=== PATIENT | male | born 1935 | race Caucasian/White ===

== ENCOUNTER 2017-05-29 21:49 | Emergency (ER) | payer MEDICARE, BC ==
[2017-05-29] MEDS ORDERED: Sodium Chloride 0.9% 10 ML Syringe FLUSH PRN (22:17)
--- NOTE | 2017-05-29 22:17 | EDM.PDOC ---
ED HPI GENERAL MEDICAL PROBLEM - General Chief Complaint: Fever Stated Complaint: aches, fever Time Seen by Provider: 05/29/17 22:10 Source of Information: Reports: Patient, Family (), Old Records ([facility] chart/EMR) - History of Present Illness INITIAL COMMENTS - FREE TEXT/NARRATIVE: Patient was brought to the emergency room via private automobile by his for evaluation of progressive nonspecific fatigue and generalized arthralgias during the last 3 days. He did have a fever of 99.9 at 21:00 hours this evening with 200 mg of ibuprofen taken at that time. He denies any known exposure to infection including strep, mono, etc. He has also had some problems with insomnia over the last few days. The patient did receive his influenza booster about 3 weeks ago. The patient denies any chest pain/pressure, heart flutter, dizziness, orthostasis, orthopnea, diaphoresis, paresthesias, recent decreased exercise tolerance, or any other anginal-type symptoms. No recent history of abdominal pain, heartburn, nausea, diarrhea, melena, gross hematochezia, or any food intolerance, including fatty foods, etc. with normal bowel movement yesterday. He denies any cough, wheezing, dyspnea, etc. No history of recent headaches, visual changes, diplopia, change in mental status, or other change in neurological status. He rates his arthralgias at 7/10 previously, although improved to 2/10 on arrival Onset: Gradual Onset Date: 05/27/17 Duration: Getting Worse Quality: Reports: Ache Severity: Moderate Improves with: Reports: None Worsens with: Reports: None Context: Reports: Other (As above). Denies: Sick Contact Associated Symptoms: Denies: Confusion, Chest Pain, Cough, Diaphoresis, Fever/ Chills, Headaches, Loss of Appetite, Malaise, Nausea/Vomiting, Seizure, Shortness of Breath, Syncope, Weakness Treatments [employer]: Reports: NSAIDS Generalized Pain Score (Numeric/FACES): 2 - Related Data Allergies Allergy/AdvReac Type Severity Reaction Status Date / Time Penicillins Allergy Swelling Verified 05/29/17 21:51 Home Meds: Home Meds Aspirin [Halfprin] 81 mg PO DAILY 05/29/17 [History] Azithromycin [Zithromax] 500 mg PO DAILY #14 tablet 05/29/17 [Rx] Benazepril HCl [Lotensin] 20 mg PO DAILY 05/29/17 [History] Cholecalciferol (Vitamin D3) [Vitamin D3] 2,000 mg PO DAILY 05/29/17 [History] Levothyroxine [Synthroid] 50 mcg PO ACBREAKFAST #60 tablet 05/29/17 [Rx] Loteprednol Etabonate [Alrex] 1 drop EYEBOTH DAILY 05/29/17 [History] Verapamil [Calan SR] 240 mg PO BEDTIME 05/29/17 [History] amLODIPine [Norvasc] 5 mg PO DAILY 05/29/17 [History] atorvaSTATin [Lipitor] 5 mg PO WEEKLY 05/29/17 [History] levETIRAcetam [Keppra] 1,000 mg PO BEDTIME 05/29/17 [History] levETIRAcetam [Levetiracetam] 750 mg PO QAM 05/29/17 [History] Past Medical History HEENT History: Reports: Hard of Hearing, Impaired Vision, Other (See Below). Denies: Allergic Rhinitis, Cataract, Glaucoma, Macular Degeneration, Retinal Detachment Other HEENT History: Bilateral moderate presbycusis but no current therapy; patient wears bifocals/ reading glasses; nasal septum deviation secondary to previous fracture as a child Cardiovascular History: Reports: Aneurysm, Arrhythmia, Cardiomyopathy, High Cholesterol, Hypertension, PVD, Other (See Below). 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 Denies: Celiac Disease, Cholelithiasis, Chronic Constipation, Chronic Diarrhea, Colon Polyp, Gastritis, Hepatitis, Inflammatory Bowel Disease, Irritable Bowel Syndrome, Jaundice, Pancreatitis Other Gastrointestinal History: History of diverticulitis; history of H. pylori on 11/24/02 without previous treatment Genitourinary History: Reports: BPH, Retention, Urinary, Other (See Below). Denies: Chronic Renal Insuffiency, Renal Calculus, STD, Urinary Incontinence Other Genitourinary History: Testicular atrophy; Peyronie's disease; history of urinary retention secondary to BPH; proteinuria Musculoskeletal History: Reports: Back Pain, Chronic, Fracture, Neck Pain, Chronic, Osteoarthritis, Osteoporosis, Other (See Below). 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 Denies: Abuse, Victim of, ADD, ADHD, Addiction, Anxiety, Depression, Psych Hospitalization(s), PTSD, Suicide Attempt , Suicidal Ideation Endocrine/Metabolic History: Reports: Diabetes, Type II, Osteoporosis, Other ( See Below). Denies: Hypothyroidism Other Endocrine/Metabolic History: AODMdiet controlled; testosterone deficiency Hematologic History: Reports: None. Denies: Anemia, Blood Transfusion(s) Immunologic History: Reports: None. Denies: AIDS, HIV, SLE Oncologic (Cancer) History: Reports: None. Denies: Colon, Hodgkin's Lymphoma, Leukemia, Lymphoma, Malignant Melanoma, Non-Hodgkin's Lymphoma, Prostate, Squamous Cell Carcinoma Dermatologic History: Reports: Other (See Below). Denies: Eczema, Psoriasis Other Dermatologic History: Actinic keratosis - Infectious Disease History Infectious Disease History: Reports: Chicken Pox, Helicobacter Pylori, Mumps ( At age 8). Denies: C-Difficile, Measles, Meningitis, Mononucleosis, MRSA, Pertussis (Whooping Cough), Rheumatic Fever, Rubella, Scarlet Fever, Shingles, VRE - Past Surgical History Head Surgeries/Procedures: Reports: Craniotomy Other Head Surgeries/Procedures: Bilateral craniotomy with left frontal dural AV fistula excision on 12/22/02 HEENT Surgical History: Reports: Adenoidectomy, Oral Surgery, Tonsillectomy, Other (See Below). Denies: Cataract Surgery, Detached Retina, Eye Surgery, Myringotomy w Tube(s), Naso-Sinus Surgery Other HEENT Surgeries/Procedures: Multiple teeth extractions with partial uppers ; Tonsillectomy and adenoidectomy as a child Cardiovascular Surgical History: Reports: Aneurysm, Vascular Surgery, Other ( See Below). Denies: Varicose Other Cardiovascular Surgeries/Procedures: AVM fistula repair as below Respiratory Surgical History: Reports: None. Denies: Lung Biopsies, Thoracentesis GI Surgical History: Reports: Colonoscopy (Last colonoscopy in about 2002). Denies: Appendectomy, Cholecystectomy, EGD, Hernia, Abdominal, Hernia, Inguinal , Hernia Repair/Other, Polypectomy Male Surgical History: Denies: Circumcision, TURP-Transurethral Resection of Prostate, Vasectomy Endocrine Surgical History: Reports: None. Denies: Thyroid Biopsy Neurological Surgical History: Denies: C-Spine, Discectomy, Laminectomy, Lumbar Spine, Scoliosis, Spinal Fusion, Vertebroplasty Musculoskeletal Surgical History: Reports: None. Denies: Arthroscopic Procedure , Carpal Tunnel, Ganglion Cyst, ORIF, Shoulder Surgery Oncologic Surgical History: Reports: None Dermatological Surgical History: Reports: None - Past Imaging History Past Imaging History: Reports: Carotid US (02/09/07), Stress Testing (Cardiolite stress test on 01/28/07 with ejection fraction of 59%), Ultrasound (Abdominal aortic ultrasound on 02/09/07) Social & Family History - Family History Cardiac: Reports: Arrhythmia, CAD, Heart Murmur, CT, Pacemaker, Syncope, Other ( See Below) Other Cardiac Family History: Father with fatal CT at age 54; sister with heart valve surgery at an early age; hypertension in mother; son with syncopal episode secondary to bradycardia with pacemaker required : Reports: Renal Disease/Insufficiency, Other (See Below) Other Family History: Sister with renal failure secondary to SLE Musculoskeletal: Reports: RA, SLE, Other (See Below) Other Musculoskeletal Family History: Sister with rheumatoid arthritis and SLE in her 30s; maternal aunt and 2 cousins with SLE Neurological: Reports: Alzheimers Disease, Dementia, Other (See Below) Other Neurological Family History: Brother with organic brain syndrome; mother with fatal organic brain syndrome at age 96; teenage daughter with seizures; son with seizures Endocrine/Metabolic: Reports: Hypothyroidism, Other (See Below) Other Endocrine/Metabolic Family History: Mother and sister with hypothyroidism - Tobacco Use Tobacco Use Within Last Twelve Months: No Used Tobacco, but Quit: No Smoking Cessation Information Provided To Patient: No Second Hand Smoke Exposure: No Second Hand Smoke Education Provided: No - Caffeine Use Caffeine Use: Reports: None. Denies: Coffee, Energy Drinks, Soda, Tea - Alcohol Use Alcohol Use History: No Days Per Week of Alcohol Use: 0 (No previous DWIs, problems with alcohol abuse, etc.) Alcohol Use in Last Twelve Months: No - Recreational Drug Use Recreational Drug Use: No Drug Use in Last 12 Months: No Recreational Drug Type: Denies: Amphetamines (Speed), Cocaine, Heroin, LSD (Acid ), Marijuana/Hashish, Methamphetamine - Living Situation & Occupation Living situation: Reports: (1960, 3 children;) Occupation: Retired ([employer]) ED ROS GENERAL - Review of Systems Review Of Systems: See Below Constitutional: Reports: Fever, Chills, Fatigue, Night Sweats. Denies: Malaise , Weakness, Diaphoresis, Decreased Appetite, Weight Loss, Weight Gain HEENT: Reports: Glasses, Hearing Loss (Stable chronic). Denies: Dental Pain, Ear Discharge, Ear Pain, Eye Discharge, Eye Pain, Rhinitis, Sinus Problem, Throat Pain, Throat Swelling, Vertigo, Vision Change Respiratory: Reports: No Symptoms. Denies: Shortness of Breath, Wheezing, Pleuritic Chest Pain, Cough, Sputum, Hemoptysis Cardiovascular: Reports: No Symptoms. Denies: Chest Pain, Blood Pressure Problem, Claudication, Dyspnea on Exertion, Edema, Lightheadedness, Orthopnea, Palpitations, PND, Syncope Endocrine: Reports: Fatigue. Denies: Polyuria GI/Abdominal: Reports: No Symptoms. Denies: Abdominal Pain, Anorexia, Black Stool, Bloody Stool, Constipation, Diarrhea, Decreased Appetite, Difficulty Swallowing, Distension, Flatus, Hematemesis, Hematochezia, Melena, Mucous in Stool, Nausea, Stool Incontinence, Vomiting : Reports: No Symptoms. Denies: Discharge, Dysuria, Flank Pain, Frequency, Hematuria, Incontinence, Pain, Urgency, Urinary Retention Musculoskeletal: Reports: Joint Pain (General arthralgias), Muscle Pain ( General myalgias). Denies: Neck Pain, Shoulder Pain, Arm Pain, Back Pain, Hand Pain, Leg Pain, Joint Swelling, Muscle Stiffness Skin: Reports: No Symptoms. Denies: Diaphoresis, Bruising, Wound Neurological: Reports: No Symptoms. Denies: Confusion, Dizziness, Headache, Numbness, Paresthesia, Seizure, Syncope, Weakness Psychiatric: Reports: No Symptoms. Denies: Agitation, Anxiety, Confusion, Depression Hematologic/Lymphatic: Reports: No Symptoms Immunologic: Reports: No Symptoms ED EXAM, GENERAL - Physical Exam Exam: See Below Exam Limited By: No Limitations General Appearance: Alert, WD/WN, No Apparent Distress Eye Exam: Bilateral Eye: EOMI, Normal Inspection (No nystagmus), PERRL Ears: Normal External Exam, Normal Canal, Normal TMs, Hearing Loss (Moderate to severe bilateral presbycusis) Nose: Normal Mucosa, No Blood, Nasal Deformity (Nasal septum deviation to the left secondary to deformity), Clear Rhinorrhea (Mild bilateral) Throat/Mouth: Normal Inspection, Normal Lips, Normal Teeth (Partial upper dentures), Normal Gums, Normal Oropharynx (Trace erythema in the posterior pharynx with no pinpoint white exudates or peritonsillar abscess), Normal Voice , No Airway Compromise. No: Dysphagia, Inflammation, Perioral Cyanosis Head: Atraumatic, Normocephalic. No: Facial Swelling, Facial Tenderness, Sinus Tenderness Neck: Supple, Non-Tender, Full Range of Motion, Carotid Bruit (Mild bilateral carotid bruits). No: Limited Range of Motion, Lymphadenopathy (L), Lymphadenopathy (R), Thyromegaly Respiratory/Chest: No Respiratory Distress, Lungs Clear, Normal Breath Sounds, No Accessory Muscle Use, Chest Non-Tender. No: Pleural Rub, Retractions Cardiovascular: Normal Peripheral Pulses, Regular Rate, Rhythm, No Edema, No Gallop, No JVD, No Murmur, No Rub. No: Gallop/S3, Gallop/S4, Friction Rub Peripheral Pulses: 2+: Radial (L), Radial (R) GI/Abdominal: Normal Bowel Sounds, Soft, Non-Tender, No Organomegaly, No Distention, No Abnormal Bruit, No Mass. No: Guarding (Male) Exam: Deferred Rectal (Males) Exam: Deferred Back Exam: Normal Inspection, Full Range of Motion. No: CVA Tenderness (L), CVA Tenderness (R), Muscle Spasm Extremities: Normal Inspection, Normal Range of Motion, Non-Tender, No Pedal Edema, Normal Capillary Refill. No: Simón's Sign Neurological: Alert, Oriented, CN II-XII Intact, Normal Cognition, Normal Gait, No Motor/Sensory Deficits Psychiatric: Normal Affect, Normal Mood Skin Exam: Warm, Dry, Intact, Normal Color, No Rash. No: Diaphoretic, Wound/ Incision Lymphatic: No Adenopathy Course - Vital Signs Last Recorded V/S: Last Vital Signs Temp 37.4 C 05/29/17 21:55 Pulse 71 05/29/17 21:55 Resp 18 05/29/17 21:55 BP 146/73 H 05/29/17 22:38 Pulse Ox 97 05/29/17 21:55 Vital Signs - 24 hr 05/29/17 05/29/17 05/29/17 21:55 22:11 22:19 Temperature [ 37.4 C Temporal] Pulse, 71 Peripheral [ Pulse Oximetry] Respiratory 18 Rate Blood Pressure 166/83 H 155/74 H 156/74 H [Left Upper Arm ] O2 Sat by Pulse 97 Oximetry 05/29/17 22:38 Temperature [ Temporal] Pulse, Peripheral [ Pulse Oximetry] Respiratory Rate Blood Pressure 146/73 H [Left Upper Arm ] O2 Sat by Pulse Oximetry - Orders/Labs/Meds Orders: Active Orders 24 hr Category Date Time Status Communication Order [RC] ROUTINE Care 05/29/17 22:17 Active Peripheral IV Care [RC] . DIRECTED Care 05/29/17 22:18 Active Up With Assistance [RC] ASDIRECTED Care 05/29/17 22:17 Active Nothing Per Oral Diet [DIET] Diet 05/29/17 Breakfast Active Chest 2V [CR] Stat Exams 05/29/17 22:17 Taken CULTURE BLOOD [BC] Stat Lab 05/29/17 22:35 Received CULTURE BLOOD [BC] Stat Lab 05/29/17 22:53 Received CULTURE SPUTUM + SMEAR [RM] Urgent Lab 05/29/17 22:17 Uncollected CULTURE URINE [RM] Routine Lab 05/29/17 22:55 Received Sodium Chloride 0.9% [Saline Flush] Med 05/29/17 22:17 Active 10 ml FLUSH ASDIRECTED PRN Blood Culture x2 Reflex Set [OM.PC] Stat Oth 05/29/17 22:17 Ordered Obtain Past Medical Record [OM.PC] Stat [facility] 05/29/17 22:17 Active Peripheral IV Insertion Adult [OM.PC] Stat [facility] 05/29/17 22:17 Ordered Resuscitation Status Routine Resus Stat 05/29/17 22:17 Ordered Medication Orders Sodium Chloride (Saline Flush) 10 ml FLUSH ASDIRECTED PRN PRN Reason: Keep Vein Open Last Admin: 05/29/17 22:38 Dose: 10 ml Labs: Laboratory Tests 05/29/17 05/29/17 05/29/17 Range/Units 22:35 22:35 22:35 WBC 7.1 (4.0-10.2) K/uL RBC 5.48 H (4.33-5.41) M/uL Hgb 16.3 (13.1-16.8) g/dL Hct 47.9 (39.0-49.0) % MCV 87.4 (84.0-98.0) fL MCH 29.7 (28.2-33.3) pg MCHC 34.0 (31.7-36.0) g/dL RDW 13.3 (11.2-14.1) % Plt Count 212 (150-350) K/uL Neut % (Auto) 63.6 (45.0-80.0) % Lymph % (Auto) 22.8 (10.0-50.0) % [place] % (Auto) 10.8 (2.0-14.0) % Eos % (Auto) 2.1 (0.0-5.0) % Baso % (Auto) 0.7 (0.0-2.0) % Neut # (Auto) 4.49 (1.40-7.00) K/uL Lymph # (Auto) 1.61 (0.50-3.50) K/uL [place] # (Auto) 0.76 (0.00-1.00) K/uL Eos # (Auto) 0.15 (0.00-0.50) K/uL Baso # (Auto) 0.05 (0.00-0.20) K/uL Sodium 140 (136-145) mmol/L Potassium 3.9 (3.5-5.1) mmol/L Chloride 101 (98-107) mmol/L Carbon Dioxide 26.0 (21.0-32.0) mmol/L BUN 13 (7-18) mg/dL Creatinine 0.88 (0.51-1.17) mg/dL Est Cr Clr Drug Dosing 72.26 mL/min Estimated GFR (MDRD) > 60 mL/min Glucose 123 H (74-106) mg/dL Lactic Acid 1.5 (0.4-2.0) mmol/L Calcium 9.1 (8.5-10.1) mg/dL Magnesium 2.2 (1.8-2.4) mg/dL Total Bilirubin 0.5 (0.2-1.0) mg/dL AST 22 (15-37) U/L ALT 41 (12-78) U/L Alkaline Phosphatase 71 (46-116) IU/L Total Protein 7.7 (6.4-8.2) g/dL Albumin 4.3 (3.4-5.0) g/dL TSH, Ultra Sensitive 4.773 H (0.358-3.740) mIU/mL Specimen Type Urine Color Urine Appearance Urine pH (5.0-9.0) Ur Specific [place] (1.005-1.030) Urine Protein (NEGATIVE) mg/dL Urine Glucose (UA) (NEGATIVE) mg/dL Urine Ketones (NEGATIVE) mg/dL Urine Occult Blood (NEGATIVE) Urine Nitrite (NEGATIVE) Urine Bilirubin (NEGATIVE) Urine Urobilinogen (0.2-1.0) E.U./dL Ur Leukocyte Esterase (NEGATIVE) Urine RBC /HPF Urine WBC /HPF Ur Epithelial Cells /LPF Urine Bacteria (NONE TO FEW) /HPF Urine Mucus (NEGATIVE) /LPF 05/29/17 Range/Units 22:55 WBC (4.0-10.2) K/uL RBC (4.33-5.41) M/uL Hgb (13.1-16.8) g/dL Hct (39.0-49.0) % MCV (84.0-98.0) fL MCH (28.2-33.3) pg MCHC (31.7-36.0) g/dL RDW (11.2-14.1) % Plt Count (150-350) K/uL Neut % (Auto) (45.0-80.0) % Lymph % (Auto) (10.0-50.0) % [place] % (Auto) (2.0-14.0) % Eos % (Auto) (0.0-5.0) % Baso % (Auto) (0.0-2.0) % Neut # (Auto) (1.40-7.00) K/uL Lymph # (Auto) (0.50-3.50) K/uL [place] # (Auto) (0.00-1.00) K/uL Eos # (Auto) (0.00-0.50) K/uL Baso # (Auto) (0.00-0.20) K/uL Sodium (136-145) mmol/L Potassium (3.5-5.1) mmol/L Chloride (98-107) mmol/L Carbon Dioxide (21.0-32.0) mmol/L BUN (7-18) mg/dL Creatinine (0.51-1.17) mg/dL Est Cr Clr Drug Dosing mL/min Estimated GFR (MDRD) mL/min Glucose (74-106) mg/dL Lactic Acid (0.4-2.0) mmol/L Calcium (8.5-10.1) mg/dL Magnesium (1.8-2.4) mg/dL Total Bilirubin (0.2-1.0) mg/dL AST (15-37) U/L ALT (12-78) U/L Alkaline Phosphatase (46-116) IU/L Total Protein (6.4-8.2) g/dL Albumin (3.4-5.0) g/dL TSH, Ultra Sensitive (0.358-3.740) mIU/mL Specimen Type Urincc Urine Color Yellow Urine Appearance Clear Urine pH 7.0 (5.0-9.0) Ur Specific [place] 1.020 (1.005-1.030) Urine Protein Negative (NEGATIVE) mg/dL Urine Glucose (UA) 100 H (NEGATIVE) mg/dL Urine Ketones Negative (NEGATIVE) mg/dL Urine Occult Blood Negative (NEGATIVE) Urine Nitrite Negative (NEGATIVE) Urine Bilirubin Negative (NEGATIVE) Urine Urobilinogen 1.0 (0.2-1.0) E.U./dL Ur Leukocyte Esterase Negative (NEGATIVE) Urine RBC 0-5 /HPF Urine WBC 0-5 /HPF Ur Epithelial Cells Few /LPF Urine Bacteria Few (NONE TO FEW) /HPF Urine Mucus Few H (NEGATIVE) /LPF Urine set up for culture and sensitivity Blood Cultures 2 collected Microbiology 05/29/17 22:19 Group A Streptococcus Rapid Screen - Final Throat Positive Strep A Screen 05/29/17 22:17 Influenza Type A Antigen Screen - Final Nasal, Left NEGATIVE INFLUENZA A VIRUS AG Influenza Type B Antigen Screen - Final NEGATIVE INFLUENZA B VIRUS AG Meds: Medications Generic Name Dose Route Start Last Admin Trade Name Freq PRN Reason Stop Dose Admin Sodium Chloride 10 ml 05/29/17 22:17 05/29/17 22:38 Saline Flush FLUSH 10 ml ASDIRECTED PRN Administration Keep Vein Open Discontinued Medications Generic Name Dose Route Start Last Admin Trade Name Freq PRN Reason Stop Dose Admin Azithromycin 500 mg 05/29/17 23:21 05/29/17 23:24 Zithromax PO 05/29/17 23:22 500 mg ONETIME ONE Administration Famotidine 40 mg 05/29/17 22:21 05/29/17 22:39 Pepcid IVPUSH 05/29/17 22:22 40 mg ONETIME ONE Administration Ketorolac Tromethamine 30 mg 05/29/17 22:21 05/29/17 22:38 Toradol IVPUSH 05/29/17 22:22 30 mg ONETIME ONE Administration - Radiology Interpretation Free Text/Narrative:: Chest x-ray, PA and lateral, shows evidence of moderate to severe COPD and pulmonary fibrotic changes with no cardiomegaly, CHF, pulmonary infiltrates, pneumothorax, etc. Moderate osteophytic and osteoporotic changes in the thoracic spine. Departure - Departure Time of Disposition: 23:40 Disposition: Home, Self-Care 01 Condition: Good Clinical Impression: Tonsillitis, Dyslipidemia, Grand mal seizure, Hypothyroidism (acquired) COPD (chronic obstructive pulmonary disease) Qualifiers: COPD type: emphysema Emphysema type: panlobular Qualified Code(s): J43.1 - Panlobular emphysema Hypertension Qualifiers: Hypertension type: essential hypertension Qualified Code(s): I10 - Essential ( primary) hypertension Osteoarthritis Qualifiers: Osteoarthritis location: multiple joints Osteoarthritis type: primary Qualified Code(s): M15.0 - Primary generalized (osteo)arthritis Diabetes mellitus Qualifiers: Diabetes mellitus type: type 2 Diabetes mellitus complication status: without complication Diabetes mellitus retirement insulin use: without retirement use Qualified Code(s): E11.9 - Type 2 diabetes mellitus without complications - Discharge Information Prescriptions: Azithromycin [Zithromax] 500 mg PO DAILY #14 tablet Levothyroxine [Synthroid] 50 mcg PO ACBREAKFAST #60 tablet Instructions: Hypothyroidism, Strep Throat, [id number] Referrals: Maribel Fraser LAB TECHNICIAN [Primary Care Provider] - Forms: ED Department Discharge Additional Instructions: 1. Follow up with your regular provider in 10-14 days as needed, if symptoms persist. 2. Tylenol 650 mg by mouth every 4 hours and/or OTC ibuprofen 2-3 tabs by mouth every 6 hours with food as directed./needed. Next dose of ibuprofen as needed in 6 hours secondary to medications given in the emergency room 3. Listerine gargles four times per day, after meals and at bedtime, with additional Chloroseptic lozenges or spray as needed for 10 days and/or until symptoms resolve. 4. Hygiene issues as discussed 5. TSH should be repeated in 4 weeks with your regular provider secondary to new diagnosis of hypothyroidism - Problem List & Annotations (1) Tonsillitis SNOMED Code(s): 57777419 Code(s): J03.90 - ACUTE TONSILLITIS, UNSPECIFIED Status: Acute Priority: High Current Visit: Yes Onset Date: 05/29/17 Annotation/Comment:: Initial dose of Zithromax given in the emergency room. Hygiene issues, etc. discussed (2) Hypothyroidism (acquired) SNOMED Code(s): 106560949 Code(s): E03.9 - HYPOTHYROIDISM, UNSPECIFIED Status: Acute Priority: Medium Current Visit: Yes Onset Date: 05/29/17 Annotation/Comment:: Note recent fatigue. Newly diagnosed hypothyroidism with initiation of medical therapy as per discharge instructions and repeat TSH in about 4 weeks by his regular provider (3) COPD (chronic obstructive pulmonary disease) SNOMED Code(s): 85030235 Code(s): J44.9 - CHRONIC OBSTRUCTIVE PULMONARY DISEASE, UNSPECIFIED Status : Chronic Priority: Medium Current Visit: Yes Annotation/Comment:: Additional pulmonary fibrosis with no recent bronchitic type symptoms. No medical therapy for his COPD required to this point Qualifiers: COPD type: emphysema Emphysema type: panlobular Qualified Code(s): J43.1 - Panlobular emphysema (4) Diabetes mellitus SNOMED Code(s): 74556963 Code(s): E11.9 - TYPE 2 DIABETES MELLITUS WITHOUT COMPLICATIONS Status: Chronic Priority: Medium Current Visit: Yes Annotation/Comment:: Diet- controlled Qualifiers: Diabetes mellitus type: type 2 Diabetes mellitus complication status: without complication Diabetes mellitus retirement insulin use: without ad terminal makeup operator use Qualified Code(s): E11.9 - Type 2 diabetes mellitus without complications (5) Dyslipidemia SNOMED Code(s): 729037201 Code(s): E78.5 - HYPERLIPIDEMIA, UNSPECIFIED Status: Chronic Priority: Medium Current Visit: Yes Annotation/Comment:: Currently under therapy (6) Grand mal seizure SNOMED Code(s): 68512681 Code(s): G40.409 - OTH GENERALIZED EPILEPSY, NOT INTRACTABLE, W/O STAT EPI Status: Chronic Priority: Medium Current Visit: Yes Annotation/Comment:: Patient has not had a seizure over 10 years. Note previous history of AVM as above. He apparently recently had a Keppra level collected with no recent change in medical therapy (7) Hypertension SNOMED Code(s): 81173469 Code(s): I10 - ESSENTIAL (PRIMARY) HYPERTENSION Status: Chronic Priority : Medium Current Visit: Yes Annotation/Comment:: Stable by history and in the emergency room Qualifiers: Hypertension type: essential hypertension Qualified Code(s): I10 - Essential (primary) hypertension (8) Osteoarthritis SNOMED Code(s): 959902904 Code(s): M19.90 - UNSPECIFIED OSTEOARTHRITIS, UNSPECIFIED SITE Status: Chronic Priority: Medium Current Visit: Yes Annotation/Comment:: Other than recent generalized arthralgias from his current infection his arthritis has been stable Qualifiers: Osteoarthritis location: multiple joints Osteoarthritis type: primary Qualified Code(s): M15.0 - Primary generalized (osteo)arthritis - Problem List Review Problem List Initiated/Reviewed/Updated: Yes - My Orders Last 24 Hours: My Active Orders 05/29/17 22:17 Communication Order [RC] ROUTINE Up With Assistance [RC] ASDIRECTED Chest 2V [CR] Stat CULTURE SPUTUM + SMEAR [RM] Urgent Sodium Chloride 0.9% [Saline Flush] 10 ml FLUSH ASDIRECTED PRN Blood Culture x2 Reflex Set [OM.PC] Stat Obtain Past Medical Record [OM.PC] Stat Peripheral IV Insertion Adult [OM.PC] Stat Resuscitation Status Routine 05/29/17 22:18 Peripheral IV Care [RC] . DIRECTED 05/29/17 22:35 CULTURE BLOOD [BC] Stat 05/29/17 22:53 CULTURE BLOOD [BC] Stat 05/29/17 22:55 CULTURE URINE [RM] Routine 05/29/17 Breakfast Nothing Per Oral Diet [DIET] - Assessment/Plan Last 24 Hours: My Active Orders 05/29/17 22:17 Communication Order [RC] ROUTINE Up With Assistance [RC] ASDIRECTED Chest 2V [CR] Stat CULTURE SPUTUM + SMEAR [RM] Urgent Sodium Chloride 0.9% [Saline Flush] 10 ml FLUSH ASDIRECTED PRN Blood Culture x2 Reflex Set [OM.PC] Stat Obtain Past Medical Record [OM.PC] Stat Peripheral IV Insertion Adult [OM.PC] Stat Resuscitation Status Routine 05/29/17 22:18 Peripheral IV Care [RC] . DIRECTED 05/29/17 22:35 CULTURE BLOOD [BC] Stat 05/29/17 22:53 CULTURE BLOOD [BC] Stat 05/29/17 22:55 CULTURE URINE [RM] Routine 05/29/17 Breakfast Nothing Per Oral Diet [DIET] Assessment:: As above Plan: As above. Extensive precautions were given to the patient and his , who are in agreement with the treatment plan. Extensive precautions were given to the patient, who is in agreement with the treatment plan.
[2017-05-29] MEDS ORDERED: Famotidine 20 MG/2 ML SDV IVPUSH ONE (22:21)
[2017-05-29] MEDS ORDERED: Ketorolac 30 MG/ML SDV IVPUSH ONE (22:21)
[2017-05-29 23:02] LABS: CHLORIDE,CL 101 mmol/L (98-107); SODIUM,NA 140 mmol/L (136-145)
[2017-05-29] MEDS ORDERED: Azithromycin 250 MG Tab PO ONE (23:21)
== END 2017-05-29 23:40 | disposition home or self-care (01) ==
LOC: LL.ED 21:49
DX: J03.90 Acute tonsillitis, unspecified (principal); G40.409 Other generalized epilepsy and epileptic syndromes, not intractable, without status epilepticus; E78.5 Hyperlipidemia, unspecified; E03.9 Hypothyroidism, unspecified; J43.1 Panlobular emphysema; I11.9 Hypertensive heart disease without heart failure; M15.0 Primary generalized (osteo)arthritis; E11.9 Type 2 diabetes mellitus without complications; Z79.82 Long term (current) use of aspirin; Z79.2 Long term (current) use of antibiotics; Z79.899 Other long term (current) drug therapy; Z88.0 Allergy status to penicillin
CPT/HCPCS: 36415; 71020; 80053; 81001; 83605; 83735; 84443; 85025; 87040; 87086; 87430; 87804; 96374; 96375; 99284; A9270; J1885; J7050; S0028

== ENCOUNTER 2018-01-16 21:54 | Emergency (ER) | payer MEDICARE, BC ==
[2018-01-16] MEDS ORDERED: Ondansetron 4 MG/2 ML SDV IVPUSH ONE (22:07)
[2018-01-16] MEDS ORDERED: Sodium Chloride 0.9% 10 ML Syringe FLUSH PRN (22:08)
[2018-01-16] MEDS ORDERED: Iopamidol 612 MG/ML 100 ML Bottle IVPUSH ONE (22:15)
[2018-01-16] MEDS ORDERED: Sodium Chloride 0.9% 1,000 ML IV SCH (22:15)
--- NOTE | 2018-01-16 22:15 | EDM.PDOC ---
ED HPI GENERAL MEDICAL PROBLEM - General Chief Complaint: Abdominal Pain Stated Complaint: nausea, abd pain Time Seen by Provider: 01/16/18 22:00 Source of Information: Reports: Patient History Limitations: Reports: No Limitations - History of Present Illness INITIAL COMMENTS - FREE TEXT/NARRATIVE: Patient is a 82-year-old who is seen with chief complaint of abdominal discomfort and pain this is mostly left lower quadrant and hypogastric area patient also complained of nausea and had 1 emesis about 400 mL in the ER. Onset: Today, Sudden Duration: Hour(s):, Getting Worse Location: Reports: Abdomen Quality: Reports: Ache Severity: Moderate Worsens with: Reports: None Associated Symptoms: Reports: Diaphoresis, Nausea/Vomiting, Weakness Abdominal Pain Score (Numeric/FACES): 3 - Related Data Allergies Allergy/AdvReac Type Severity Reaction Status Date / Time Penicillins Allergy Swelling Verified 01/16/18 21:56 Home Meds: Home Meds Aspirin [Halfprin] 81 mg PO DAILY 05/29/17 [History] Azithromycin [Zithromax] 500 mg PO DAILY #14 tablet 05/29/17 [Rx] Benazepril HCl [Lotensin] 20 mg PO DAILY 05/29/17 [History] Cholecalciferol (Vitamin D3) [Vitamin D3] 2,000 mg PO DAILY 05/29/17 [History] Levothyroxine [Synthroid] 50 mcg PO ACBREAKFAST #60 tablet 05/29/17 [Rx] Loteprednol Etabonate [Alrex] 1 drop EYEBOTH DAILY 05/29/17 [History] Verapamil [Calan SR] 240 mg PO BEDTIME 05/29/17 [History] amLODIPine [Norvasc] 5 mg PO DAILY 05/29/17 [History] atorvaSTATin [Lipitor] 5 mg PO WEEKLY 05/29/17 [History] levETIRAcetam [Keppra] 1,000 mg PO BEDTIME 05/29/17 [History] levETIRAcetam [Levetiracetam] 750 mg PO QAM 05/29/17 [History] Past Medical History HEENT History: Reports: Hard of Hearing, Impaired Vision, Other (See Below) Other HEENT History: Bilateral moderate presbycusis but no current therapy; patient wears bifocals/ reading glasses; nasal septum deviation secondary to previous fracture as a child Cardiovascular History: Reports: Aneurysm, Arrhythmia, Cardiomyopathy, High Cholesterol, Hypertension, PVD, Other (See Below) Other Cardiovascular History: Dyslipidemia; PVCs, PACs, couplets, bigeminy, trigeminy, and 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; mild C-spine fracture as a child with multiple vertebral body compression fractures secondary to osteoporosis Neurological History: Reports: Cerebral Aneurysms, Seizure, Other (See Below) Other Neuro History: 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; 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 Psychiatric History: Reports: None Endocrine/Metabolic History: Reports: Diabetes, Type II, Osteoporosis, Other ( See Below) Other Endocrine/Metabolic History: AODMdiet controlled; testosterone deficiency Hematologic History: Reports: None Immunologic History: Reports: None Oncologic (Cancer) History: Reports: None Dermatologic History: Reports: Other (See Below) Other Dermatologic History: Actinic keratosis - Infectious Disease History Infectious Disease History: Reports: Chicken Pox, Helicobacter Pylori, Mumps - Past Surgical History Head Surgeries/Procedures: Reports: Craniotomy HEENT Surgical History: Reports: Adenoidectomy, Oral Surgery, Tonsillectomy, Other (See Below) Other HEENT Surgeries/Procedures: Multiple teeth extractions with partial uppers ; Tonsillectomy and adenoidectomy as a child Cardiovascular Surgical History: Reports: Aneurysm, Vascular Surgery, Other ( See Below) Other Cardiovascular Surgeries/Procedures: AVM fistula repair as below Respiratory Surgical History: Reports: None GI Surgical History: Reports: Colonoscopy Endocrine Surgical History: Reports: None Musculoskeletal Surgical History: Reports: None Oncologic Surgical History: Reports: None Dermatological Surgical History: Reports: None - Past Imaging History Past Imaging History: Reports: Carotid US (02/09/07), Stress Testing (Cardiolite stress test on 01/28/07 with ejection fraction of 59%), Ultrasound (Abdominal aortic ultrasound on 02/09/07) Social & Family History - Family History Cardiac: Reports: Arrhythmia, CAD, Heart Murmur, [place], Pacemaker, Syncope, Other ( See Below) Other Cardiac Family History: Father with fatal MN at age 54; sister with heart valve surgery at an early age; hypertension in mother; son with syncopal episode secondary to bradycardia with pacemaker required : Reports: Renal Disease/Insufficiency, Other (See Below) Other Family History: Sister with renal failure secondary to SLE Musculoskeletal: Reports: RA, SLE, Other (See Below) Other Musculoskeletal Family History: Sister with rheumatoid arthritis and SLE in her 30s; maternal aunt and 2 cousins with SLE Neurological: Reports: Alzheimers Disease, Dementia, Other (See Below) Other Neurological Family History: Brother with organic brain syndrome; mother with fatal organic brain syndrome at age 96; teenage daughter with seizures; son with seizures Endocrine/Metabolic: Reports: Hypothyroidism, Other (See Below) Other Endocrine/Metabolic Family History: Mother and sister with hypothyroidism - Caffeine Use Caffeine Use: Reports: None. Denies: Coffee, Energy Drinks, Soda, Tea - Living Situation & Occupation Living situation: Reports: (1960, 3 children;) Occupation: Retired ([employer]) ED ROS GENERAL - Review of Systems Review Of Systems: See Below Constitutional: Reports: Chills, Diaphoresis HEENT: Reports: No Symptoms Respiratory: Reports: No Symptoms Cardiovascular: Reports: No Symptoms Endocrine: Reports: No Symptoms GI/Abdominal: Reports: Abdominal Pain, Distension, Nausea, Vomiting : Reports: No Symptoms Musculoskeletal: Reports: No Symptoms Skin: Reports: No Symptoms Neurological: Reports: No Symptoms Psychiatric: Reports: No Symptoms Hematologic/Lymphatic: Reports: No Symptoms Immunologic: Reports: No Symptoms ED EXAM, GI/ABD - Physical Exam Exam: See Below Exam Limited By: No Limitations General Appearance: Alert, WD/WN Eyes: Bilateral: Normal Appearance, EOMI Ears: Normal External Exam, Normal Canal, Hearing Grossly Normal, Normal TMs Nose: Normal Inspection, Normal Mucosa, No Blood Throat/Mouth: Normal Inspection, Normal Lips, Normal Teeth, Normal Gums, Normal Oropharynx, Normal Voice, No Airway Compromise Head: Atraumatic, Normocephalic Neck: Normal Inspection, Supple, Non-Tender, Full Range of Motion Respiratory/Chest: No Respiratory Distress, Lungs Clear, Normal Breath Sounds, No Accessory Muscle Use, Chest Non-Tender Cardiovascular: Normal Peripheral Pulses, Regular Rate, Rhythm, No Edema, No Gallop, No JVD, No Murmur, No Rub GI/Abdominal Exam: Normal Bowel Sounds, Tender (Male) Exam: Deferred Rectal (Males) Exam: Deferred Back Exam: Normal Inspection, Full Range of Motion, NT Extremities: Normal Inspection, Normal Range of Motion, Non-Tender, Normal Capillary Refill, No Pedal Edema Neurological: Alert, Oriented, CN II-XII Intact, Normal Cognition, Normal Gait, Normal Reflexes, No Motor/Sensory Deficits Psychiatric: Normal Affect, Normal Mood Skin Exam: Warm, Dry, Intact, Normal Color, No Rash Lymphatic: No Adenopathy Course - Vital Signs Last Recorded V/S: Last Vital Signs Temp 98.2 F 01/16/18 22:00 Pulse 78 01/17/18 00:00 Resp 18 01/17/18 00:00 BP 152/71 H 01/17/18 00:00 Pulse Ox 98 01/17/18 00:00 - Orders/Labs/Meds Labs: Laboratory Tests 01/16/18 01/16/18 Range/Units 22:15 22:15 WBC 13.3 H (4.0-10.2) K/uL RBC 5.59 H (4.33-5.41) M/uL Hgb 16.4 (13.1-16.8) g/dL Hct 48.3 (39.0-49.0) % MCV 86.4 (84.0-98.0) fL MCH 29.3 (28.2-33.3) pg MCHC 34.0 (31.7-36.0) g/dL RDW 13.6 (11.2-14.1) % Plt Count 205 (150-350) K/uL Neut % (Auto) 73.4 (45.0-80.0) % Lymph % (Auto) 17.4 (10.0-50.0) % [place] % (Auto) 6.9 (2.0-14.0) % Eos % (Auto) 1.8 (0.0-5.0) % Baso % (Auto) 0.5 (0.0-2.0) % Neut # (Auto) 9.77 H (1.40-7.00) K/uL Lymph # (Auto) 2.32 (0.50-3.50) K/uL [place] # (Auto) 0.92 (0.00-1.00) K/uL Eos # (Auto) 0.24 (0.00-0.50) K/uL Baso # (Auto) 0.06 (0.00-0.20) K/uL Sodium 142 (136-145) mmol/L Potassium 3.6 (3.5-5.1) mmol/L Chloride 105 (98-107) mmol/L Carbon Dioxide 26.4 (21.0-32.0) mmol/L BUN 18 (7-18) mg/dL Creatinine 1.01 (0.51-1.17) mg/dL Est Cr Clr Drug Dosing 61.89 mL/min Estimated GFR (MDRD) > 60 mL/min Glucose 122 H (74-106) mg/dL Calcium 9.4 (8.5-10.1) mg/dL Troponin I 0.000 (0.000-0.056) ng/mL Meds: Medications Discontinued Medications Generic Name Dose Route Start Last Admin Trade Name Akshatq PRN Reason Stop Dose Admin Sodium Chloride 1,000 mls @ 150 mls/hr 01/16/18 22:15 01/16/18 22:40 Normal Saline IV 150 mls/hr ASDIRECTED THEO Administration Iopamidol 100 ml 01/16/18 22:15 01/17/18 00:06 Isovue-300 (61%) IVPUSH 01/16/18 22:16 100 ml ONETIME ONE Administration Ondansetron HCl 4 mg 01/16/18 22:07 01/16/18 22:40 Zofran IVPUSH 01/16/18 22:08 4 mg ONETIME ONE Administration Sodium Chloride 10 ml 01/16/18 22:08 Saline Flush FLUSH ASDIRECTED PRN Keep Vein Open Departure - Departure Time of Disposition: 00:49 Disposition: Home, Self-Care 01 Clinical Impression: Gastroenteritis - Discharge Information *PRESCRIPTION DRUG MONITORING PROGRAM REVIEWED*: Not Applicable *COPY OF PRESCRIPTION DRUG MONITORING REPORT IN PATIENT NATALIE: Not Applicable Instructions: Renal Scan Referrals: Maribel Fraser NP [Primary Care Provider] - Forms: ED Department Discharge Care Plan Goals: CT of the abdomen revealed enlarged left kidney and renal pelvis as far as the GI tract and looked like there was some diverticuli but not diverticulitis also there was watery stool in the colon which most probably is secondary to gastroenteritis . We will schedule him for a ultrasound of the kidneys Thursday and patient should follow-up Thursday with private M.D. we'll start him on Cipro twice a day
[2018-01-16 22:38] LABS: CHLORIDE,CL 105 mmol/L (98-107); SODIUM,NA 142 mmol/L (136-145)
== END 2018-01-17 01:05 | disposition home or self-care (01) ==
LOC: LL.ED 21:54
DX: K52.9 Noninfective gastroenteritis and colitis, unspecified (principal); I10 Essential (primary) hypertension; J44.9 Chronic obstructive pulmonary disease, unspecified; E11.9 Type 2 diabetes mellitus without complications; Z88.0 Allergy status to penicillin; Z79.82 Long term (current) use of aspirin; Z79.899 Other long term (current) drug therapy
CPT/HCPCS: 36415; 74177; 80048; 84484; 85025; 96361; 96374; 99284; J2405; J7030; Q9967

== ENCOUNTER 2020-07-31 07:48 | Emergency (ER) | payer MEDICARE, BC ==
--- NOTE | 2020-07-31 08:44 | EDM.PDOC ---
ED HPI GENERAL MEDICAL PROBLEM - General Chief Complaint: ENT Problem Stated Complaint: hearing loss Time Seen by Provider: 07/31/20 08:00 Source of Information: Reports: Patient, Family - History of Present Illness INITIAL COMMENTS - FREE TEXT/NARRATIVE: Pt presents to ER with acute hearing loss at 2100 hrs last evening No pain No GRANT No trauma Pt has hx/o same symptoms 15 yrs ago and was diagnosed with AVM at that time Hearing loss is in both ears Also states his thoughts feel fuzzy Onset: Sudden Duration: Day(s): Location: Reports: Head - Related Data Allergies Allergy/AdvReac Type Severity Reaction Status Date / Time Penicillins Allergy Swelling Verified 07/31/20 08:08 Home Meds: Home Meds Aspirin [Halfprin] 81 mg PO DAILY 05/29/17 [History] Benazepril HCl [Lotensin] 20 mg PO DAILY 05/29/17 [History] Cholecalciferol (Vitamin D3) [Vitamin D3] 2,000 mg PO DAILY 05/29/17 [History] Verapamil [Calan SR] 240 mg PO BEDTIME 05/29/17 [History] amLODIPine [Norvasc] 5 mg PO DAILY 05/29/17 [History] levETIRAcetam [Keppra] 1,000 mg PO BEDTIME 05/29/17 [History] levETIRAcetam [Levetiracetam] 750 mg PO QAM 05/29/17 [History] Multivitamin 1 tab PO DAILY 07/31/20 [History] Omeprazole 20 mg PO DAILY 07/31/20 [History] Past Medical History HEENT History: Reports: Hard of Hearing, Impaired Vision, Other (See Below) Other HEENT History: Bilateral moderate presbycusis but no current therapy; patient wears bifocals/ reading glasses; nasal septum deviation secondary to previous fracture as a child Cardiovascular History: Reports: Aneurysm, Arrhythmia, Cardiomyopathy, High Cholesterol, Hypertension, PVD, Other (See Below) Other Cardiovascular History: Dyslipidemia; PVCs, PACs, couplets, bigeminy, trigeminy, and 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; mild C-spine fracture as a child with multiple vertebral body compression fractures secondary to osteoporosis Neurological History: Reports: Cerebral Aneurysms, Seizure, Other (See Below) Other Neuro History: 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; 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 Psychiatric History: Reports: None Endocrine/Metabolic History: Reports: Diabetes, Type II, Osteoporosis, Other (See Below) Other Endocrine/Metabolic History: AODMdiet controlled; testosterone deficiency Hematologic History: Reports: None Immunologic History: Reports: None Oncologic (Cancer) History: Reports: None Dermatologic History: Reports: Other (See Below) Other Dermatologic History: Actinic keratosis - Infectious Disease History Infectious Disease History: Reports: Chicken Pox, Helicobacter Pylori, Mumps - Past Surgical History Head Surgeries/Procedures: Reports: Craniotomy HEENT Surgical History: Reports: Adenoidectomy, Oral Surgery, Tonsillectomy, Other (See Below) Other HEENT Surgeries/Procedures: Multiple teeth extractions with partial uppers; Tonsillectomy and adenoidectomy as a child Cardiovascular Surgical History: Reports: Aneurysm, Vascular Surgery, Other (See Below) Other Cardiovascular Surgeries/Procedures: AVM fistula repair as below Respiratory Surgical History: Reports: None GI Surgical History: Reports: Colonoscopy Endocrine Surgical History: Reports: None Musculoskeletal Surgical History: Reports: None Oncologic Surgical History: Reports: None Dermatological Surgical History: Reports: None - Past Imaging History Past Imaging History: Reports: Carotid US (02/09/07), Stress Testing (Cardiolite stress test on 01/28/07 with ejection fraction of 59%), Ultrasound (Abdominal aortic ultrasound on 02/09/07) Social & Family History - Family History Cardiac: Reports: Arrhythmia, CAD, Heart Murmur, [place], Pacemaker, Syncope, Other (See Below) Other Cardiac Family History: Father with fatal ND at age 54; sister with heart valve surgery at an early age; hypertension in mother; son with syncopal episode secondary to bradycardia with pacemaker required : Reports: Renal Disease/Insufficiency, Other (See Below) Other Family History: Sister with renal failure secondary to SLE Musculoskeletal: Reports: RA, SLE, Other (See Below) Other Musculoskeletal Family History: Sister with rheumatoid arthritis and SLE in her 30s; maternal aunt and 2 cousins with SLE Neurological: Reports: Alzheimers Disease, Dementia, Other (See Below) Other Neurological Family History: Brother with organic brain syndrome; mother with fatal organic brain syndrome at age 96; teenage daughter with seizures; son with seizures Endocrine/Metabolic: Reports: Hypothyroidism, Other (See Below) Other Endocrine/Metabolic Family History: Mother and sister with hypothyroidism - Tobacco Use Tobacco Use Status *Q: Never Tobacco User Second Hand Smoke Exposure: No - Caffeine Use Caffeine Use: Reports: None - Recreational Drug Use Recreational Drug Use: No - Living Situation & Occupation Living situation: Reports: (1960, 3 children;) Occupation: Retired ([employer]) ED ROS ENT - Review of Systems Review Of Systems: See Below Constitutional: Reports: No Symptoms HEENT: Reports: Hearing Loss Respiratory: Reports: No Symptoms Cardiovascular: Reports: No Symptoms GI/Abdominal: Reports: No Symptoms Musculoskeletal: Reports: No Symptoms Neurological: Reports: No Symptoms, Other (Feels fuzzy) Psychiatric: Reports: No Symptoms ED EXAM, ENT - Physical Exam Exam: See Below Exam Limited By: No Limitations General Appearance: Alert, WD/WN, No Apparent Distress Eye Exam: Bilateral Eye: EOMI, PERRL Ears: Normal External Exam, Normal TMs Nose: Normal Inspection Mouth/Throat: Normal Inspection Head: Atraumatic Neck: Supple Respiratory/Chest: Lungs Clear Cardiovascular: Regular Rate, Rhythm Extremities: Normal Inspection Neurological: Alert, Oriented, Other (Decreased hearing bilaterally) Course - Vital Signs Last Recorded V/S: Last Vital Signs Temp 98.3 F 07/31/20 08:00 Pulse 88 07/31/20 08:10 Resp 20 07/31/20 08:10 BP 163/90 H 07/31/20 08:10 Pulse Ox 100 07/31/20 08:10 - Orders/Labs/Meds Orders: Active Orders 24 hr Category Date Time Status Head wo Cont [CT] Stat Exams 07/31/20 07:49 Taken - Re-Assessments/Exams Free Text/Narrative Re-Assessment/Exam: 07/31/20 08:43 CT: No acute findings per radiologist D/W [facility] Wright Will accept in transfer to ER Departure - Departure Time of Disposition: 08:45 Disposition: DC/Tfer to Acute Hospital 02 Clinical Impression: Acute hearing loss of both ears - Discharge Information *PRESCRIPTION DRUG MONITORING PROGRAM REVIEWED*: Not Applicable *COPY OF PRESCRIPTION DRUG MONITORING REPORT IN PATIENT NATALIE: Not Applicable Referrals: Maribel Fraser NP [Primary Care Provider] - Sepsis Event Note (ED) - Evaluation Sepsis Screening Result: No Definite Risk - Focused Exam Vital Signs: Vital Signs Temp Pulse Resp BP Pulse Ox 07/31/20 08:10 88 20 163/90 H 100 07/31/20 08:00 98.3 F 88 20 166/89 H 99 07/31/20 07:50 98.3 F 97 18 199/93 H 99
== END 2020-07-31 08:55 ==
LOC: LL.ED 07:48
DX: H91.93 Unspecified hearing loss, bilateral (principal)
CPT/HCPCS: 70450; 99284; 99284-25